=== PATIENT | female | born 1980 | race Caucasian/White ===

== ENCOUNTER 2016-12-12 18:26 | Emergency (ER) | payer OTHER ==
[~2016-12-12] VITALS: Ht 167.6 cm; Wt 74.6 kg
[~2016-12-12 18:26] MED LIST: DIFLUCAN150 MG PO; DOXYCYCLINE HY100 M3 PO; ERYTHROMYC1 APPLICAT BOTH EYES; NAPROSYN500 MG PO; OFLOXACIN10 M1 BOTH EYES; OFLOXACIN10 M1 LEFT EYE; PERCOCET 5/31 TABLET PO; SLEEP AID50 MG PO; TRAMADOL HCL50 MG PO; TRAZODONE HCL50 MG PO; TYLENOL COLD M240 ML PO; ULTRAM50 MG PO
[2016-12-12] MEDS ORDERED: NAPROXEN500 MG PO (19:52)
[2016-12-12 22:32] VITALS: BP 125/78
== END 2016-12-12 22:36 | disposition home or self-care (01) ==
LOC: EME 18:26 → EXP 18:26
DX: S83.91XA Sprain of unspecified site of right knee, initial encounter (principal); X50.9XXA Other and unspecified overexertion or strenuous movements or postures, initial encounter; Y99.0 Civilian activity done for income or pay
CPT/HCPCS: 73564; 99281; 99283